=== PATIENT | male | born 1980 | race Asian ===

== ENCOUNTER 2016-06-27 04:56 | Emergency (ER) | payer OTHER ==
[2016-06-27 06:02] VITALS: BP 132/83; PULSE 102; TEMP 97.2; BMI 31.8
--- NOTE | 2016-06-27 06:16 | PDOC ---
History of Present Illness - General History Source: Patient Exam Limitations: No Limitations - History of Present Illness Initial Comments: 06/27/16 06:25 The patient is a 36-year-old male with a significant past medical history of bipolar disorder, and presents to the emergency department with a nonproductive cough for one day. The patient reports that he wakes up from his sleep coughing. He states he is having his tonsils removed in 2 weeks. He denies any history of asthma. The patient denies chest pain, shortness of breath, headache and dizziness. The patient denies fever, chills, nausea, vomit, diarrhea and constipation. The patient denies dysuria, frequency, urgency and hematuria. Allergies: NKDA Past Surgical History: None reported Social History: Denies any toxic habits PCP: Dr. Vernon Orona <Regina Saez - Last Filed: 06/27/16 06:25> <Alicia Soto - Last Filed: 06/27/16 22:31> - General Chief Complaint: Cold Symptoms Stated Complaint: COUGH, RESPIRATORY Time Seen by Provider: 06/27/16 06:16 Past History <Regina Saez - Last Filed: 06/27/16 06:25> - Past Medical History Psychiatric Problems: Yes (BIPOLAR 1) - Immunization History Immunization Up to Date: No - Psycho/Social/Smoking Cessation Hx Anxiety: No Suicidal Ideation: No Smoking Status: No Smoking History: Never smoked Number of Cigarettes Smoked Daily: 0 Hx Alcohol Use: No Drug/Substance Use Hx: No <Alicia Soto - Last Filed: 06/27/16 22:31> - Past Medical History Allergies/Adverse Reactions: Allergies Allergy/AdvReac Type Severity Reaction Status Date / Time No Known Allergies Allergy Verified 02/25/15 12:22 Home Medications: Ambulatory Orders Aripiprazole [Abilify -] 15 mg PO DAILY 06/27/16 Azithromycin [Zithromax Tri-Cy (3 DAYS) -] 500 mg PO DAILY #3 tablet 06/27/16 Divalproex Sodium [Depakote] 250 mg PO DAILY 06/27/16 Pseudoephedrine HCl [Sudafed] 1 tab PO QID #20 tablet 06/27/16 Quetiapine Fumarate [Seroquel -] 50 mg PO HS 06/27/16 Review of Systems - Review of Systems Able to Perform ROS?: Yes Comments:: 06/27/16 06:25 CONSTITUTIONAL: Absent: fever, chills, diaphoresis, generalized weakness, malaise, loss of appetite HEENT: Absent: rhinorrhea, nasal congestion, throat pain, throat swelling, difficulty swallowing, mouth swelling, ear pain, eye pain, visual changes CARDIOVASCULAR: Absent: chest pain, syncope, palpitations, irregular heart rate, lightheadedness , peripheral edema RESPIRATORY: Present: (+) cough Absent: shortness of breath, dyspnea with exertion, orthopnea, wheezing, stridor , hemoptysis GASTROINTESTINAL: Absent: abdominal pain, abdominal distension, nausea, vomiting, diarrhea, constipation, melena, hematochezia GENITOURINARY: Absent: dysuria, frequency, urgency, hesitancy, hematuria, flank pain, genital pain MUSCULOSKELETAL: Absent: myalgia, arthralgia, joint swelling SKIN: Absent: rash, itching, pallor HEMATOLOGIC/IMMUNOLOGIC: Absent: easy bleeding, easy bruising, lymphadenopathy, frequent infections ENDOCRINE: Absent: unexplained weight gain, unexplained weight loss, heat intolerance, cold intolerance NEUROLOGIC: Absent: headache, focal weakness or paresthesias, dizziness, unsteady gait, seizure, mental status changes, bladder or bowel incontinence PSYCHIATRIC: Absent: anxiety, depression, suicidal or homicidal ideation, hallucinations. <Regina Saez - Last Filed: 06/27/16 06:25> *Physical Exam - Vital Signs Last Vital Signs Temp Pulse Resp BP Pulse Ox 97.2 F L 102 H 19 132/83 97 06/27/16 05:58 06/27/16 05:58 06/27/16 05:58 06/27/16 05:58 06/27/16 05:58 - Physical Exam Comments: 06/27/16 06:26 GENERAL: Well developed, well nourished. Awake and alert. No acute distress. HEENT: Normocephalic, atraumatic. PERRLA, EOMI. No conjunctival pallor. Sclera are non- icteric. Moist mucous membranes. Oropharynx is clear. NECK: Supple. Full ROM. No JVD. Carotid pulses 2+ and symmetric, without bruits. No thyromegaly. No lymphadenopathy. CARDIOVASCULAR: Regular rate and rhythm. No murmurs, rubs, or gallops. Distal pulses are 2+ and symmetric. PULMONARY: No evidence of respiratory distress. Lungs clear to auscultation bilaterally. No wheezing, rales or rhonchi. ABDOMINAL: Soft. Non-tender. Non-distended. No rebound or guarding. No organomegaly. Normoactive bowel sounds. MUSCULOSKELETAL Normal range of motion at all joints. No bony deformities or tenderness. No CVA tenderness. EXTREMITIES: No cyanosis. No clubbing. No edema. No calf tenderness. SKIN: Warm and dry. Normal capillary refill. No rashes. No jaundice. NEUROLOGICAL: Alert, awake, appropriate. Cranial nerves 2-12 intact. No deficits to light touch and temperature in face, upper extremities and lower extremities. No motor deficits in the in face, upper extremities and lower extremities. Normoreflexic in the upper and lower extremities. Normal speech. Toes are down- going bilaterally. Gait is normal without ataxia. PSYCHIATRIC: Cooperative. Good eye contact. Appropriate mood and affect. <Regina Saez - Last Filed: 06/27/16 06:25> - Vital Signs Last Vital Signs Temp Pulse Resp BP Pulse Ox 97.2 F L 102 H 19 132/83 97 06/27/16 05:58 06/27/16 05:58 06/27/16 05:58 06/27/16 05:58 06/27/16 05:58 <Alicia Soto - Last Filed: 06/27/16 22:31> Medical Decision Making - Medical Decision Making 06/27/16 22:29 Pt comes with a dry cough; ongoing for over a week and now with worsening. He is afebirile. His sinuses are clogged and he likely has a post nasal drip. Patient has a normal exam. I will treat him for sinusitis/atypical pneumonia at this time with a z-cy. He can follow with his PMD/ENT doctors to follow up. Return for increased cough and difficulty breathing. <Alicia Soto - Last Filed: 06/27/16 22:31> *DC/Admit/Observation/Transfer - Attestations Scribe Attestion: 06/27/16 06:27 Documentation prepared by Regina Saez, acting as nuclear medical tech for Alicia Soto MD. <Regina Saez - Last Filed: 06/27/16 06:25> - Discharge Dispostion Admit: No <Alicia Soto - Last Filed: 06/27/16 22:31> Diagnosis at time of Disposition: Sinusitis, Post-nasal catarrh, Atypical pneumonia - Discharge Dispostion Disposition: HOME Condition at time of disposition: Stable - Prescriptions Prescriptions: Pseudoephedrine HCl [Sudafed] 1 tab PO QID #20 tablet Azithromycin [Zithromax Tri-Cy (3 DAYS) -] 500 mg PO DAILY #3 tablet - Referrals Referrals: Vernon Orona [Primary Care Provider] - - Patient Instructions Printed Discharge Instructions: DI for Sinusitis
== END 2016-06-27 06:27 | disposition home or self-care (01) ==
LOC: JER 04:56
DX: J32.9 Chronic sinusitis, unspecified (principal); R09.82 Postnasal drip; J18.9 Pneumonia, unspecified organism
CPT/HCPCS: 99282-25

== ENCOUNTER 2016-07-09 11:10 | Day surgery (SDC) | payer OTHER ==
[2016-07-08 14:36] VITALS: BMI 31.8
[2016-07-09] MEDS ORDERED: PROPOFOL 20 ML ONE ×3 (12:56)
[2016-07-09] MEDS ORDERED: MIDAZOLAM HCL 2 MG/2 ML SINGLE DOSE VIAL ONE (12:57)
[2016-07-09] MEDS ORDERED: ROCURONIUM BROMIDE 50 MG/5 ML VIAL ONE (12:57)
[2016-07-09] MEDS ORDERED: COCAINE HCL 4% TOPICAL SOLUTION 4 ML BOTTLE TP ONE (12:58)
[2016-07-09] MEDS ORDERED: DESFLURANE GAS 240 ML BOTTLE IH ONE (13:42)
[2016-07-09] MEDS ORDERED: LIDOCAINE 1%/EPI 1:100000 (50 ML MULTI DOSE VIAL) INF ONE (13:45)
[2016-07-09] MEDS ORDERED: oxyCODONE HCL 5 MG TABLET PO PRN (14:22)
[2016-07-09] MEDS ORDERED: ONDANSETRON 4 MG/2 ML VIAL IVPUSH PRN (14:22)
[2016-07-09] MEDS ORDERED: LACTATED RINGERS SOLUTION 1,000 ML IV SCH (14:30)
--- NOTE | 2016-07-09 15:31 | OP ---
DATE OF OPERATION: 07/09/2016 PREOPERATIVE DIAGNOSIS: Moderate obstructive sleep apnea, tonsillar hypertrophy , deviated septum, turbinate hypertrophy. POSTOPERATIVE DIAGNOSIS: Moderate obstructive sleep apnea, tonsillar hypertrophy, deviated septum, turbinate hypertrophy. PROCEDURE: Tonsillectomy, septoplasty, submucous resection bilateral inferior turbinates. INDICATION: The patient is a 36-year-old male who has had a history of chronic, severe snoring with gasping and arousals as well as significant daytime fatigue. He also has chronic nasal congestion with breathing with no relief despite prolonged medical therapy. He had a sleep study, which did show moderate obstructive sleep apnea and was adamant that he would not tolerate CPAP at all. On serial exam was noted to have 4+ cryptic tonsils as well as marked deviated septum bilaterally and turbinate hypertrophy and is now indicated for formal surgery. The patient understood risks, benefits, and alternatives and did wish to proceed. ANESTHESIA: General endotracheal intubation. DESCRIPTION OF PROCEDURE: The patient was brought to the operating room and placed in supine position. After successful induction of anesthesia and placement of endotracheal tube, a shoulder roll was placed, and the patient's face and neck was prepped and draped in usual sterile fashion. McIvor mouth gag was placed into the oral cavity and retracted open to expose the oropharynx, which was suspended from the Vides stand. Tonsils were noted to be 4+ bilaterally and markedly cryptic. Tonsillar fossa was injected with 6 mL of 1% lidocaine with 1:100,000 epinephrine. A subcapsular plane using the Coblation device with EVac Xtra handpiece was used to perform subcapital removal of bilateral tonsils preserving anterior and posterior tonsillar pillar mucosa. Bleeding was controlled using bipolar coblation device. No active bleeding was noted. Mouth gag was removed with no evidence of injury to dentition or mucosa. Attention was then brought to the nasal cavity. Pledgets soaked in 4% cocaine were placed into bilateral nasal cavities to establish vasoconstriction, and an additional 8 mL of 1% lidocaine with 1:100,000 epinephrine was injected into the bilateral septal mucosa as well as the inferior turbinate mucosa. The septum was addressed first. Standard right-sided hemitransfixion incision was made and a mucoperichondrial flap then elevated on the right side. A vertically oriented septal cartilage incision was made, leaving a 2-cm anterior and superior strut and then mucoperichondrial flap then elevated on the opposite side. The area of deflected cartilage was removed using a swivel knife as well as Jonathan forceps and Christ-Etienne forceps with no [id number] septal perforators noted. Septal mucosa was matched to itself using 3-0 chromic sutures. Attention was then brought to the inferior turbinates. A stab incision was made anteriorly. Submucosal tunnel created. The microdebrider with the inferior turbinate handpiece was used to perform submucosal removal of tissue anteriorly and superiorly down to the turbinate periosteum. The inferior turbinates were then outfractured. NasaPore sterile packing was placed in the nasal cavities for hemostasis. The patient told the procedure well and was extubated and brought to the recovery room in stable condition. ESTIMATED BLOOD LOSS: 20 mL. SPECIMENS: Bilateral tonsils. GURMEET VILLASENOR M.D. [id number] MTDD
[2016-07-09 18:14] VITALS: BP 130/80; PULSE 88
[2016-07-09 19:10] VITALS: TEMP 97.6
--- NOTE | 2016-07-13 14:01 | PATH ---
Surgical Pathology Report Patient Name: LY BARNHART Med. Rec. #: [id number] /Age/Gender: 1980 (Age: 36) / M Account: [id number] Location: [facility] SUR[facility] Taken: 07/09/2016 Received: 07/12/2016 Reported: 07/13/2016 Physicians: Kofi Claros M.D. Specimen(s) Received A: LEFT TONSIL B: RIGHT TONSIL C: NASAL SEPTUM Clinical History Tonsil hypertrophy bilateral, deviated septum, sleep apnea Final Diagnosis A. TONSIL, LEFT, TONSILLECTOMY: BENIGN TONSIL WITH REACTIVE FOLLICULAR LYMPHOID HYPERPLASIA AND COLONIZATION WITH MICROORGANISMS MORPHOLOGICALLY CONSISTENT WITH ACTINOMYCES SPECIES. B. TONSIL, RIGHT, TONSILLECTOMY: BENIGN TONSILS WITH REACTIVE FOLLICULAR LYMPHOID HYPERPLASIA AND COLONIZATION WITH MICROORGANISMS MORPHOLOGICALLY CONSISTENT WITH ACTINOMYCES SPECIES. C. NASAL SEPTUM, SEPTOPLASTY: BONE AND CARTILAGE WITHOUT SIGNIFICANT PATHOLOGIC CHANGES. Electronically Signed Shola Winn M.D. Gross Description A. Received in formalin labeled "left tonsil" is a 2.8 x 2.0 x 1.8 cm ovoid portion of soft tissue, consistent with a tonsil. The outer surface is kay-conrad, convoluted and varies from smooth to cauterized. Sectioning reveals homogeneous kay, smooth parenchyma with cryptic architecture. No discrete masses are identified. A risk control field representative section is submitted in one cassette. B. Received in formalin labeled "right tonsil" is a 2.5 x 2.0 x 1.8 cm ovoid portion of soft tissue, consistent with a tonsil. The outer surface is kay-conrad, convoluted and varies from smooth to cauterized. Sectioning reveals homogeneous kay, smooth parenchyma with cryptic architecture. No discrete masses are identified. A risk control field representative section is submitted in one cassette. C. Received in formalin labeled "nasal septum" is a 4.5 x 3.3 x 0.3 cm aggregate of kay, irregular portions of cartilage and bone. Director Of Mechanical Engineering sections are submitted in one cassette, following decalcification. 07/12/201607/12/2016
== END 2016-07-09 18:10 | disposition home or self-care (01) ==
LOC: JASU-SURG 11:10
PROVIDERS: ATTEND Otolaryngology
PROC: 0CTPXZZ Resection of Tonsils, External Approach (ICD-10-PCS; principal; 2016-07-09 13:00)
PROC: 09SM0ZZ Reposition Nasal Septum, Open Approach (ICD-10-PCS; 2016-07-09 13:00)
DX: J35.1 Hypertrophy of tonsils (principal); G47.33 Obstructive sleep apnea (adult) (pediatric); J34.3 Hypertrophy of nasal turbinates; J34.2 Deviated nasal septum
CPT/HCPCS: 88302-TC; 88304-TC; 88311-TC; 94760

== ENCOUNTER 2019-11-26 05:49 | Day surgery (SDC) | payer BC ==
[2019-11-22 16:12] VITALS: BMI 33.5
[~2019-11-26 05:49] MED LIST: BUPIVACAINE HCL/PF 0.25% (2.5MG/ML) 10 ML VIAL IJ ONE
--- OUTSIDE RECORDS SUMMARY | 2019-11-26 05:53 | XMS ---
:1980 Author Organization [facility] Care Team Providers Name Role Phone JEANETTE WILSON MD Unavailable Unavailable [id number] Unavailable Unavailable [facility] Unavailable Unavailable ZENER Unavailable Unavailable Re-disclosure Warning The records that you are about to access may contain information from federally- assisted alcohol or drug abuse programs. If such information is present, then the following federally mandated warning applies: This information has been disclosed to you from records protected by federal confidentiality rules (42 CFR part 2). The federal rules prohibit you from making any further disclosure of this information unless further disclosure is expressly permitted by the written consent of the person to whom it pertains or as otherwise permitted by 42 CFR part 2. A general authorization for the release of medical or other information is NOT sufficient for this purpose. The Federal rules restrict any use of the information to criminally investigate or prosecute any alcohol or drug abuse patient.The records that you are about to access may contain highly sensitive health information, the redisclosure of which is protected by Article 27-F of the [facility] Public Health law. If you continue you may haveaccess to information: Regarding HIV / AIDS; Provided by facilities licensed or operated by the [facility] Office of Mental Health; or Provided by the [facility] Office for People With Developmental Disabilities. If such information is present, then the following [facility] mandated warning applies: This information has been disclosed to you from confidential records which are protected by state law. State law prohibits you from making any further disclosure of this information without the specific written consent of the person to whom it pertains, or as otherwise permitted by law. Any unauthorized further disclosure in violation of state law may result in a fine or residential sentence or both. A general authorization for the release of medical or other information is NOT sufficient authorization for further disclosure. Encounters Encounter Providers Location Date Indications Data Source(s ) Outpatient Attender: [id number] 04/17/2019 I ([facility] 01:11:40 PM Care Bernice n) EST Patient admitted. Outpatient Attender: JEANETTE ROBERTS 04/29/2016 08:55[facility]00 [facility] NABIL PAVON AM EST Hospital Attender: 04/29/2016 08:55:00 [facility] [id number] AM EST Hospital .1 [id number] Attender: 03/30/2016 01:20:00 [facility] [id number] PM EST Hospital .1 [id number] Attender: 03/30/2016 11:01:00 [facility] [id number] AM EST Hospital .1 [id number] Attender: 2016 03:04:00 [facility] [id number] PM EST Hospital .1 [id number] Attender: 2016 12:45:00 [facility] [id number] PM EST Hospital .1 [id number] Attender: 12/10/2015 08:53:00 [facility] [id number] AM EDT Hospital .1 [id number] Attender: 11/28/2015 12:59:00 [facility] [id number] PM EDT Hospital .1 [id number] Attender: 09/01/2010 05:16:00 [facility] [id number] PM EDT Hospital .1 [id number] Attender: 07/24/2010 10:31:00 [facility] [id number] AM EDT Hospital .1 [id number] Attender: 07/23/2010 03:56:00 [facility] [id number] PM EDT Hospital .1 [id number] Attender: 06/22/2010 01:20:00 [facility] [id number] PM EDT Hospital .1 [id number] Attender: 06/08/2010 02:22:00 [facility] [id number] PM EDT Hospital .1 [id number] Medications Medication Brand Start Product Dose Route Administrative Pharmacy [facility] Indications Reaction Description Data Name Date Form Instructions Instructions Source(s) olanzapine ZyPREX ORAL complet ZyPREXA - 20 [facility] 20 [facility] Oral A - 20 2019 [facility] ORAL [place] [facility] [Zyprexa[facility] ORAL 00 AM Tablet EDT olanzapine ZyPREX ORAL complet ZyPREXA - 20 [facility] 20 MG Oral A - 20 2019 [facility] ORAL [place] [facility] [Zyprexa] ORAL 00 AM Tablet EDT olanzapine ZyPREX ORAL complet ZyPREXA - 20 [facility] 20 MG Oral A - 20 2019 [facility] ORAL [place] [facility] [Zyprexa] ORAL 00 AM Tablet EST olanzapine ZyPREX ORAL complet ZyPREXA - 20 [facility] 20 MG Oral A - 20 2018 [facility] ORAL [place] [facility] [Zyprexa] ORAL 00 AM Tablet EST olanzapine ZyPREX ORAL complet ZyPREXA - 5 [facility] 5 MG Oral A - 5 2018 Table ed MG ORAL [place] n[place] Tablet MG 12:[facility]: [facility] [Zyprexa] ORAL 00 AM Tablet EDT olanzapine ZyPREX ORAL complet ZyPREXA - 15 [facility] 15 MG Oral A - 15 2018 Table ed MG ORAL [place] [facility] [Zyprexa] ORAL 00 AM Tablet EDT olanzapine ZyPREX ORAL complet ZyPREXA - 15 [facility] 15 MG Oral A - 15 2018 Table ed MG ORAL [place] [facility] 12:[facility]: [facility] [Zyprexa] ORAL 00 AM Tablet EDT olanzapine ZyPREX ORAL complet ZyPREXA - 15 [facility] 15 MG Oral A - 2018 [facility] MG ORAL [place] [facility] 12:[facility]: [facility] [Zyprexa] ORAL 00 AM Tablet EDT olanzapine ZyPREX ORAL complet ZyPREXA - 15 [facility] 15 MG Oral A 2018 Table ed MG ORAL [place] [facility] 12:[facility]: [facility] [Zyprexa] ORAL 00 AM Tablet EDT olanzapine ZyPREX ORAL complet ZyPREXA - 10 [facility] 10 MG Oral A 2018 Table ed MG ORAL [place] [facility]t MG 12:[facility]: [facility] [Zyprexa] ORAL 00 AM Tablet EDT olanzapine ZyPREX ORAL complet ZyPREXA - 5 [facility] 5 MG Oral A 2018 Table ed MG ORAL [facility] n[facility] Tablet [facility] 12:[facility]: [facility] [Zyprexa] ORAL 00 AM Tablet EDT Lurasidone Latuda ORAL complet Latuda - 40 [facility] Hydrochlori 40 2018 Table ed MG [facility]AL [facility] MG MG 12:00: [facility] Oral Tablet ORAL 00 AM Tablet EDT Lurasidone Latuda ORAL complet Latuda - 60 [facility] Hydrochlori - 60 2018 Table ed MG ORAL [facility] 60 MG MG 12:00: t [facility] Oral Tablet ORAL 00 AM [Latuda] Tablet EDT olanzapine ZyPREX ORAL complet ZyPREXA - [facility] 2.5 MG Oral A 2018 [facility] ed 2.5 MG ORAL [facility] Tablet 2.5 MG 12:00: t [facility] [Zyprexa] ORAL 00 AM Tablet EST Lurasidone Latuda ORAL complet Latuda - 20 [facility] Hydrochlori - 20 2018 Table ed MG ORAL [facility] 20 MG MG 12:00: t [facility] Oral Tablet ORAL 00 AM Tablet EST Alprazolam Xanax ORAL complet Xanax - 0.25 [facility] 0.[facility] MG - 0.25 2018 Table ed MG ORAL [facility] Oral Tablet MG 12:00: t [facility] ital [Xanax] ORAL 00 AM Tablet EST aripiprazol Abilif ORAL complet Abilif y - 10 [facility] 10 MG y - 10 2018 Table ed MG ORAL [facility] Oral Tablet MG 12:00: t [facility] [Abilify] ORAL 00 AM Tablet EST Zolpidem Ambien ORAL complet Ambien - 10 [facility] tartrate 10 - 10 2017 Table ed MG ORAL [facility] MG Oral MG 12:00: t [facility] Tablet ORAL 00 AM [Ambien] Tablet EST Lurasidone Latuda ORAL complet Latuda - 80 [facility]2017 Table ed MG ORAL [facility] 80 MG MG 12:00: t [facility] Oral Tablet ORAL 00 AM Tablet EST Lurasidone Latuda ORAL complet Latuda - [facility] 2017 Table ed MG ORAL [facility] 20 MG MG 12:00: t [facility] Oral Tablet ORAL 00 AM [Latuda] Tablet EST Zolpidem Ambien ORAL complet Ambien - 5 [facility] tartrate 5 - 5 MG 2017 Table ed MG ORAL [place] [facility] MG Oral ORAL 12:00: t [facility] Hospital Tablet Tablet 00 AM [Ambien] EDT Lurasidone Latuda ORAL complet Latuda - 80 [facility] 2017 Table ed MG ORAL [facility] 80 MG MG 12:00: t [facility] Oral Tablet ORAL 00 AM [Latuda] Tablet EDT Lurasidone Latuda ORAL complet Latuda - 80 [place] [address] 2017 Table ed MG ORAL [facility] 80 MG MG 12:00: t [facility]osp[facility] Oral Tablet ORAL 00 AM [Latuda] Tablet EDT atomoxetine Stratt ORAL complet Stra 10 MG Oral era 2017 Capsu ed 10 MG ORAL [facility] Capsule 10 MG 12:00: le Capsule Hospit al [Strattera] ORAL 00 AM Capsul EDT e Lurasidone Latuda ORAL complet Latuda - 80 [facility] 80 2017 Table ed MG ORAL [facility] 80 MG MG 12:00: t [facility]osp[facility] l Oral Tablet ORAL 00 AM [Latuda] Tablet EDT Lurasidone Latuda ORAL complet Latuda - 60 [facility] 60 2017 Table ed MG ORAL [facility] 60 MG MG 12:00: t [facility]t [facility]osp[facility] l Oral Tablet ORAL 00 AM Tablet EDT Lurasidone Latuda ORAL complet Latuda - 60 [place] [address] 2017 Table ed MG ORAL [facility] 60 MG MG 12:00: t [facility]osp[facility] Oral Tablet ORAL 00 AM Tablet EDT Zolpidem Ambien ORAL complet Ambien - 5 [facility] tartrate 5 - 5 MG 2017 Table ed MG ORAL [place] [facility] MG Oral ORAL 12:00: t [facility]t Hospital Tablet Tablet 00 AM [Ambien] EST Diphenhydra diphen ORAL complet diphen [facility] 2017 Capsu ed INE HCl - 25 [facility] Hydrochlori INE 12:00: le MG ORAL Hos pital de 25 MG HCl - 00 AM Capsule Oral 25 MG EST Capsule ORAL Capsul e Lurasidone Latuda ORAL complet Latuda - 60 [place] [address] 2017 Table ed MG ORAL [facility] 60 MG MG 12:00: t [facility]ospita l Oral Tablet ORAL 00 AM [Latuda] Tablet EST Lurasidone Latuda ORAL complet Latuda - 40 [facility] 40 2017 Table ed MG ORAL [facility] 40 MG MG 12:00: t [facility]t Hospita l Oral Tablet ORAL 00 AM [Latuda] Tablet EST Lurasidone Latuda ORAL complet Latuda - 20 [facility] 2016 Table ed MG ORAL [facility] 20 MG MG 12:00: t [facility]osp[facility] Oral Tablet ORAL 00 AM [Latuda] Tablet EST Lurasidone Latuda ORAL complet [facility]uda - [facility] Table ed MG ORAL [facility] 20 MG MG 12:00: t [facility]osp[facility] Oral Tablet ORAL 00 AM [Latuda] Tablet EST aripiprazol Abilif ORAL complet Abilif y - 10 [facility] e 10 MG y - 10 2016 Table ed MG ORAL [facility] Oral Tablet MG 12:00: t Tablet Hosp ital [Abilify] ORAL 00 AM Tablet EST aripiprazol Abilif ORAL complet Abilif y - 10 [facility] 10 MG y - 2016 Table ed MG ORAL [facility] Oral Tablet MG 12:00: t [facility]osp ital [Abilify] ORAL 00 AM Tablet EDT topiramate Topama ORAL complet Topamax - 25 [facility] 25 MG Oral x - 25 2016 Table ed MG ORAL [place] cents Tablet MG 12:00: t [facility] [Topamax] ORAL 00 AM Tablet EDT aripiprazol Abilif 03/24/ ORAL complet S [facility] e 15 MG y - 2016 [facility] Oral Tablet MG 12:00: Hospit al [Abilify] ORAL 00 AM Tablet EST Insurance Providers Payer name Policy type Policy ID Covered Covered republican's Policy P marlen / Coverage republican ID relationship to [place] Inf ormation type benoit PPO [id number] SP [id number] MEDICAID OP [id number] Self [id number] [facility] EB [id number] Self [id number] CARE SELF PAY 0000 Self 0000 BEACON [id number] Self [id number] (EMPIRE PLAN V/O) Problems, Conditions, and Diagnoses Code Display Name Description Problem Type Effective Dates Data Source(s) 296.44 BIPOLAR I Bipolar disorder, Diagnosis 06/18/2010 [facility] DISORDER MOST manic, severe w 10:00:00 AM EDT H ospital RECENT EPISODE psychotic (OR CURRENT) MANIC SEVERE SPECIFIED WITH PSYCHOTIC BEHAVIOR Results ID Date Data Source [id number] 11/22/2019 09:17:00 AM EDT [facility] Name Value Range Interpretation Description Data Sup porting Code Source(s) Document(s ) SARS [facility] coronavirus 2 RNA This lab was ordered by KE avila LULU and reported by [facility]. Procedure Vital Signs ID Date Data Source UNK Name Value Range Interpretation Code Description Data Source(s) Body temperature 98 Fahrenheit 98 Fahrenheit [facility] Diastolic blood 89 mmHg 89 mmHg [facility] Systolic blood 126 mmHg 126 mmHg [facility] Respiratory rate 18 bpm 18 bpm [facility] Heart rate 78 bpm 78 bpm [facility] Diastolic blood 83 mmHg 83 mmHg [facility] Systolic blood 134 mmHg 134 mmHg [facility] Respiratory rate 18 bpm 18 bpm [facility] Heart rate 101 bpm 101 bpm [facility] Diastolic blood 79 mmHg 79 mmHg [facility] Systolic blood 132 mmHg 132 mmHg [facility] Respiratory rate 18 bpm 18 bpm [facility] Heart rate 93 bpm 93 bpm [facility] Body temperature 97.0 Fahrenheit 97.0 Fahrenhei t [facility] Diastolic blood 79 mmHg 79 mmHg [facility] Systolic blood 123 mmHg 123 mmHg [facility] Heart rate 114 bpm 114 bpm [facility] Diastolic blood 82 mmHg 82 mmHg [facility] Systolic blood 125 mmHg 125 mmHg [facility] Respiratory rate 18 bpm 18 bpm [facility] Heart rate 93 bpm 93 bpm [facility] Body temperature 97.1 Fahrenheit 97.1 Fahrenhei t [facility] Diastolic blood 78 mmHg 78 mmHg [facility] Systolic blood 120 mmHg 120 mmHg [facility] Heart rate 96 bpm 96 bpm [facility] Diastolic blood 76 mmHg 76 mmHg [facility] Systolic blood 124 mmHg 124 mmHg [facility] Respiratory rate 18 bpm 18 bpm [facility] Heart rate 96 bpm 96 bpm [facility] Body temperature 96.0 Fahrenheit 96.0 Fahrenhei t [facility] Diastolic blood 76 mmHg 76 mmHg [facility] Systolic blood 124 mmHg 124 mmHg [facility] Respiratory rate 18 bpm 18 bpm [facility] Heart rate 96 bpm 96 bpm [facility] Body temperature 96.0 Fahrenheit 96.0 Fahrenhei t [facility] Diastolic blood 86 mmHg 86 mmHg [facility] Systolic blood 141 mmHg 141 mmHg [facility] Heart rate 104 bpm 104 bpm [facility] Diastolic blood 82 mmHg 82 mmHg [facility] Systolic blood 132 mmHg 132 mmHg [facility] Respiratory rate 18 bpm 18 bpm [facility] Heart rate 92 bpm 92 bpm [facility] Body temperature 97.0 Fahrenheit 97.0 Fahrenhei t [facility] Diastolic blood 83 mmHg 83 mmHg [facility] Systolic blood 120 mmHg 120 mmHg [facility] Respiratory rate 20 bpm 20 bpm [facility] Heart rate 102 bpm 102 bpm [facility] Diastolic blood 77 mmHg 77 mmHg [facility] Systolic blood 127 mmHg 127 mmHg [facility] Respiratory rate 20 bpm 20 bpm [facility] Heart rate 94 bpm 94 bpm [facility] Body temperature 96.7 Fahrenheit 96.7 Fahrenhei t [facility] Diastolic blood 89 mmHg 89 mmHg [facility] Systolic blood 145 mmHg 145 mmHg [facility] Heart rate 99 bpm 99 bpm [facility] Diastolic blood 86 mmHg 86 mmHg [facility] Systolic blood 135 mmHg 135 mmHg [facility] Respiratory rate 18 bpm 18 bpm [facility] Heart rate 93 bpm 93 bpm [facility] Body temperature 95.8 Fahrenheit 95.8 Fahrenhei t [facility] Diastolic blood 79 mmHg 79 mmHg [facility] Systolic blood 131 mmHg 131 mmHg [facility] Respiratory rate 18 bpm 18 bpm [facility] Heart rate 91 bpm 91 bpm [facility] Body temperature 97.0 Fahrenheit 97.0 Fahrenhei t [facility] Diastolic blood 76 mmHg 76 mmHg [facility] Systolic blood 114 mmHg 114 mmHg [facility] Respiratory rate 18 bpm 18 bpm [facility] Heart rate 95 bpm 95 bpm [facility] Body temperature 97.0 Fahrenheit 97.0 Fahrenhei t [facility] Heart rate 103 bpm 103 bpm [facility] Diastolic blood 84 mmHg 84 mmHg [facility] Systolic blood 143 mmHg 143 mmHg [facility] Diastolic blood 94 mmHg 94 mmHg [facility] Systolic blood 138 mmHg 138 mmHg [facility] Respiratory rate 18 bpm 18 bpm [facility] Heart rate 100 bpm 100 bpm [facility] Body temperature 100 Fahrenheit 100 Fahrenheit [facility] Diastolic blood 79 mmHg 79 mmHg [facility] Systolic blood 126 mmHg 126 mmHg [facility] Respiratory rate 18 bpm 18 bpm [facility] Heart rate 95 bpm 95 bpm [facility] Body temperature 96.3 Fahrenheit 96.3 Fahrenhei t [facility] Diastolic blood 80 mmHg 80 mmHg [facility] Systolic blood 120 mmHg 120 mmHg [facility] Respiratory rate 18 bpm 18 bpm [facility] Heart rate 109 bpm 109 bpm [facility] Body temperature 96.3 Fahrenheit 96.3 Fahrenhei t [facility] Diastolic blood 91 mmHg 91 mmHg [facility] Systolic blood 138 mmHg 138 mmHg [facility] Respiratory rate 18 bpm 18 bpm [facility] Heart rate 99 bpm 99 bpm [facility] Diastolic blood 87 mmHg 87 mmHg [facility] Systolic blood 135 mmHg 135 mmHg [facility] Respiratory rate 18 bpm 18 bpm [facility] Heart rate 99 bpm 99 bpm [facility] Body temperature 98.9 Fahrenheit 98.9 Fahrenhei t [facility] Diastolic blood 87 mmHg 87 mmHg [facility] Systolic blood 129 mmHg 129 mmHg [facility] Respiratory rate 18 bpm 18 bpm [facility] Heart rate 104 bpm 104 bpm [facility] Diastolic blood 89 mmHg 89 mmHg [facility] Systolic blood 127 mmHg 127 mmHg [facility] Respiratory rate 18 bpm 18 bpm [facility] Heart rate 98 bpm 98 bpm [facility] Body temperature 97.5 Fahrenheit 97.5 Fahrenhei t [facility] Diastolic blood 80 mmHg 80 mmHg [facility] Systolic blood 129 mmHg 129 mmHg [facility] Respiratory rate 18 bpm 18 bpm [facility] Heart rate 103 bpm 103 bpm [facility] Diastolic blood 81 mmHg 81 mmHg [facility] Systolic blood 127 mmHg 127 mmHg [facility] Respiratory rate 18 bpm 18 bpm [facility] Heart rate 100 bpm 100 bpm [facility] Body temperature 97.0 Fahrenheit 97.0 Fahrenhei t [facility] Body temperature 96.8 Fahrenheit 96.8 Fahrenhei t [facility] Diastolic blood 88 mmHg 88 mmHg [facility] Systolic blood 127 mmHg 127 mmHg [facility] Respiratory rate 18 bpm 18 bpm [facility] Heart rate 98 bpm 98 bpm [facility] Diastolic blood 81 mmHg 81 mmHg [facility] Systolic blood 124 mmHg 124 mmHg [facility] Respiratory rate 18 bpm 18 bpm [facility] Heart rate 110 bpm 110 bpm [facility] Diastolic blood 75 mmHg 75 mmHg [facility] Systolic blood 106 mmHg 106 mmHg [facility] Respiratory rate 18 bpm 18 bpm [facility] Heart rate 98 bpm 98 bpm [facility] Body temperature 96.5 Fahrenheit 96.5 Fahrenhei t [facility] Diastolic blood 79 mmHg 79 mmHg [facility] Systolic blood 121 mmHg 121 mmHg [facility] Respiratory rate 18 bpm 18 bpm [facility] Heart rate 124 bpm 124 bpm [facility] Diastolic blood 88 mmHg 88 mmHg [facility] Systolic blood 125 mmHg 125 mmHg [facility] Respiratory rate 18 bpm 18 bpm [facility] Heart rate 114 bpm 114 bpm [facility] Body temperature 96.4 Fahrenheit 96.4 Fahrenhei t [facility] Body weight 233 lbs 233 lbs [facility] Body temperature 96.8 Fahrenheit 96.8 Fahrenhei t [facility] Diastolic blood 91 mmHg 91 mmHg [facility] Systolic blood 142 mmHg 142 mmHg [facility] Respiratory rate 20 bpm 20 bpm [facility] Heart rate 88 bpm 88 bpm [facility] Diastolic blood 90 mmHg 90 mmHg [facility] Systolic blood 126 mmHg 126 mmHg [facility] Respiratory rate 18 bpm 18 bpm [facility] Heart rate 97 bpm 97 bpm [facility] Body temperature 96.8 Fahrenheit 96.8 Fahrenhei t [facility] Body temperature 96.1 Fahrenheit 96.1 Fahrenhei t [facility] Diastolic blood 87 mmHg 87 mmHg [facility] Systolic blood 130 mmHg 130 mmHg [facility] Respiratory rate 18 bpm 18 bpm [facility] Heart rate 105 bpm 105 bpm [facility] Diastolic blood 84 mmHg 84 mmHg [facility] Systolic blood 135 mmHg 135 mmHg [facility] Heart rate 109 bpm 109 bpm [facility] Diastolic blood 89 mmHg 89 mmHg [facility] Systolic blood 129 mmHg 129 mmHg [facility] Respiratory rate 18 bpm 18 bpm [facility] Heart rate 105 bpm 105 bpm [facility] Body temperature 95.5 Fahrenheit 95.5 Fahrenhei t [facility] Diastolic blood 97 mmHg 97 mmHg [facility] Systolic blood 140 mmHg 140 mmHg [facility] Respiratory rate 18 bpm 18 bpm [facility] Heart rate 104 bpm 104 bpm [facility] Body temperature 96.6 Fahrenheit 96.6 Fahrenhei t [facility] Diastolic blood 92 mmHg 92 mmHg [facility] Systolic blood 138 mmHg 138 mmHg [facility] Heart rate 128 bpm 128 bpm [facility] Diastolic blood 90 mmHg 90 mmHg [facility] Systolic blood 133 mmHg 133 mmHg [facility] Respiratory rate 18 bpm 18 bpm [facility] Heart rate 115 bpm 115 bpm [facility] Body temperature 97.2 Fahrenheit 97.2 Fahrenhei t [facility] Diastolic blood 83 mmHg 83 mmHg [facility] Systolic blood 127 mmHg 127 mmHg [facility] Respiratory rate 18 bpm 18 bpm [facility] Heart rate 100 bpm 100 bpm [facility] Body temperature 96.7 Fahrenheit 96.7 Fahrenhei t [facility] Diastolic blood 85 mmHg 85 mmHg [facility] Systolic blood 131 mmHg 131 mmHg [facility] Respiratory rate 18 bpm 18 bpm [facility] Heart rate 104 bpm 104 bpm [facility] Body temperature 97.4 Fahrenheit 97.4 Fahrenhei t [facility] Diastolic blood 93 mmHg 93 mmHg [facility] Systolic blood 140 mmHg 140 mmHg [facility] Respiratory rate 18 bpm 18 bpm [facility] Heart rate 88 bpm 88 bpm [facility] Body temperature 96.1 Fahrenheit 96.1 Fahrenhei t [facility] Diastolic blood 93 mmHg 93 mmHg [facility] Systolic blood 133 mmHg 133 mmHg [facility] Respiratory rate 18 bpm 18 bpm [facility] Heart rate 103 bpm 103 bpm [facility] Body temperature 96.1 Fahrenheit 96.1 Fahrenhei t [facility] Diastolic blood 83 mmHg 83 mmHg [facility] Systolic blood 123 mmHg 123 mmHg [facility] Heart rate 123 bpm 123 bpm [facility] Diastolic blood 83 mmHg 83 mmHg [facility] Systolic blood 129 mmHg 129 mmHg [facility] Respiratory rate 18 bpm 18 bpm [facility] Heart rate 110 bpm 110 bpm [facility] Body temperature 97.0 Fahrenheit 97.0 Fahrenhei t [facility] [facility] Diastolic blood 83 mmHg 83 mmHg [facility] Systolic blood 129 mmHg 129 mmHg [facility] Respiratory rate 18 bpm 18 bpm [facility] Heart rate 110 bpm 110 bpm [facility] Body temperature 97.0 Fahrenheit 97.0 Fahrenhei t [facility] Respiratory rate 18 bpm 18 bpm [facility] Body temperature 96.7 Fahrenheit 96.7 Fahrenhei t [facility] Diastolic blood 86 mmHg 86 mmHg [facility] Systolic blood 125 mmHg 125 mmHg [facility] Heart rate 115 bpm 115 bpm [facility] ID Date Data Source [id number] 10/24/2019 01:04:54 PM EDT [facility] Name Value Range Interpretation Code Description Data Source(s) Body weight Measured 233 lb 233 lb [facility]
[2019-11-26] MEDS ORDERED: BUPIVACAINE HCL/PF 0.25% (2.5MG/ML) 10 ML VIAL ONE (07:29)
[2019-11-26] MEDS ORDERED: MIDAZOLAM HCL 2 MG/2 ML SINGLE DOSE VIAL ONE (07:53)
[2019-11-26] MEDS ORDERED: SUCCINYLCHOLINE CHLORIDE 200 MG/10 ML SYRINGE ONE (07:54)
[2019-11-26] MEDS ORDERED: PROPOFOL 20 ML ONE ×3 (07:54)
[2019-11-26] MEDS ORDERED: ROCURONIUM BROMIDE 50 MG/5 ML SYRINGE ONE (07:54)
--- NOTE | 2019-11-26 07:58 | HP ---
Admitting History and Physical - Admission Chief Complaint: Morbid obesity History Source: Patient Limitations to Obtaining History: No Limitations - Past Medical History Pulmonary: Yes: Sleep Apnea Psych: Yes: Bipolar - Past Surgical History Past Surgical History: Yes: Tonsillectomy - Smoking History Smoking history: Never smoked Aproximately how many cigarettes per day: 0 - Alcohol/Substance Use Hx Alcohol Use: Yes (RARELY) - Social History ADL: Independent Home Medications - Allergies Allergies/Adverse Reactions: Allergies Allergy/AdvReac Type Severity Reaction Status Date / Time No Known Allergies Allergy Verified 07/09/16 11:54 - Home Medications Home Medications: Ambulatory Orders Finasteride 1 mg PO DAILY 11/22/19 Olanzapine [Zyprexa] 20 mg PO DAILY 11/22/19 Family Medical History Family History: Unremarkable Review of Systems - Review of Systems Constitutional: denies: Chills, Fever Neck: reports: No Symptoms Cardiovascular: reports: No Symptoms Respiratory: reports: No Symptoms Gastrointestinal: reports: No Symptoms Neurological: reports: No Symptoms Pain Intensity: 0 Physical Examination Vital Signs: Vital Signs Temperature 98.7 F 11/26/19 06:32 Pulse Rate 78 11/26/19 06:32 Respiratory Rate 17 11/26/19 06:32 Blood Pressure 133/98 11/26/19 06:32 O2 Sat by Pulse Oximetry (%) 98 11/26/19 06:32 Constitutional: Yes: Calm Neck: Yes: WNL Cardiovascular: Yes: WNL Respiratory: Yes: Regular Gastrointestinal: Yes: Soft, Abdomen, Obese Neurological: Yes: Alert, Oriented Problem List - Problems (1) Morbid obesity due to excess calories Code(s): E66.01 - MORBID (SEVERE) OBESITY DUE TO EXCESS CALORIES Assessment/Plan Laparoscopic possible open gastric band placement possible liver biopsy, upper endoscopy
[2019-11-26] MEDS ORDERED: LIDOCAINE HCL/PF 2% SDV 5ML VIAL ONE (08:51)
[2019-11-26] MEDS ORDERED: GLYCOPYRROLATE 0.2 MG/1 ML VIAL ONE (08:51)
[2019-11-26] MEDS ORDERED: ONDANSETRON 4 MG/2 ML VIAL ONE (08:51)
[2019-11-26] MEDS ORDERED: NEOSTIGMINE METHYLSULFATE 0.5 MG/ML - 10 ML MDV ONE (08:51)
[2019-11-26] MEDS ORDERED: DEXAMETHASONE SOD PHOSPHATE 4 MG/1 ML VIAL ONE (08:51)
[2019-11-26] MEDS ORDERED: ceFAZolin SODIUM 1 GM VIAL ONE (08:51)
[2019-11-26] MEDS ORDERED: BUPIVACAINE HCL/PF 0.25% (2.5MG/ML) 10 ML VIAL IJ ONE (09:15)
[2019-11-26] MEDS ORDERED: ONDANSETRON 4 MG/2 ML VIAL IVPUSH PRN (09:19)
--- NOTE | 2019-11-26 09:21 | OPR ---
Operative Note Operative Date: 11/26/19 Pre-Operative Diagnosis: Morbid obesity Operation: 1. Diagnostic laparoscopy. 2. Laparoscopic gastric band placement AP Standard 3. Laparoscopic wedge liver biopsy. 4. Laparoscopic oversewing of stomach 5. Laparoscopic lysis of adhesions Post-Operative Diagnosis: Same as Pre-op (as well as hepatomegaly) Surgeon: Calvin Altamirano Assembler Tester: Jin Bergeron Anesthesia: General Specimens Removed: Liver biopsy. Estimated Blood Loss (mls): 30 Drains & Tubes with Location: OG tube Operative Report Dictated: Yes
[2019-11-26] MEDS ORDERED: ACETAMINOPHEN INJECTION 100 ML IVPB ONE (09:23)
[2019-11-26] MEDS ORDERED: METOCLOPRAMIDE HCL INJECTION 10 MG/2 ML VIAL ONE (09:23)
[2019-11-26] MEDS ORDERED: SODIUM CHLORIDE 1,000 ML IV SCH (09:30)
[2019-11-26] MEDS ORDERED: oxyCODONE HCL 5 MG TABLET PO PRN (09:37)
[2019-11-26] MEDS ORDERED: METOCLOPRAMIDE HCL INJECTION 10 MG/2 ML VIAL IVPUSH SCH (09:45)
[2019-11-26] MEDS ORDERED: ONDANSETRON 4 MG/2 ML VIAL IVPUSH SCH (09:45)
[2019-11-26] MEDS ORDERED: LACTATED RINGERS SOLUTION 1,000 ML IV SCH (09:45)
[2019-11-26] MEDS ORDERED: ACETAMINOPHEN 1000 MG/100 ML VIAL (NON FORMULARY) IVPB SCH (10:00)
[2019-11-26] MEDS ORDERED: PATIENT'S OWN MEDICATION (NON-FORMULARY) (Finasteride [Finasteride] 1 MG) PO SCH (10:00)
[2019-11-26] MEDS ORDERED: OLANZapine 10 MG TABLET PO SCH (10:00)
[2019-11-26] MEDS ORDERED: FAMOTIDINE 20 MG/50 ML IVPB 20 MG/50 ML MG IVPB SCH (10:00)
[2019-11-26 11:12] LABS: HEMATOCRIT 46.1 % (35.4-49); HEMOGLOBIN 15.3 GM/dl (11.7-16.9); MCHC 33.2 g/dl (32.0-35.9); MEAN CELL VOLUME 78.5 fl (80-96); PLATELET COUNT 213 K/MM3 (134-434); RBC 5.87 M/mm3 (4.00-5.60); RDW 12.1 % (11.9-15.9); WHITE BLOOD COUNT 5.9 K/mm3 (4.0-10.8)
[2019-11-26 11:23] VITALS: PULSE 80; TEMP 98
[2019-11-26 11:31] LABS: CALCIUM 8.2 mg/dl (8.5-10); CREATININE 0.9 mg/dl (0.55-1.3); POTASSIUM 5.1 mmol/L (3.5-5.1)
[2019-11-26] MEDS ORDERED: ENOXAPARIN NA (PORCINE) 40 MG/0.4 ML DISP.SYRIN SQ ONE ×2 (12:32→13:10)
--- NOTE | 2019-11-26 12:36 | PN ---
Progress Note (short form) - Note Progress Note: UGI: no leak/obstruction Clears Discharge home Problem List - Problems (1) Morbid obesity due to excess calories Code(s): E66.01 - MORBID (SEVERE) OBESITY DUE TO EXCESS CALORIES
[2019-11-26] MEDS: oxyCODONE HCL 5 MG TABLET ONE ×2 (12:40→13:25)
[2019-11-26 13:18] VITALS: BP 135/84
--- NOTE | 2019-11-26 14:56 | SPEC ---
PLACE OF SERVICE: [facility] DATE OF OPERATION: 11/26/2019 SURGEON: Calvin Altamirano MD PSYCHOLOGIST: Jin Bergeron MD PREOPERATIVE DIAGNOSES: 1. Morbid obesity. 2. Sleep apnea. POSTOPERATIVE DIAGNOSES: 1. Morbid obesity. 2. Sleep apnea. 3. Intraabdominal adhesions. 4. Hepatomegaly. PROCEDURE: 1. Diagnostic laparoscopy. 2. Laparoscopic gastric band placement, standard AP band. 3. Laparoscopic wedge liver biopsy. 4. Laparoscopic lysis of adhesions. 5. Laparoscopic oversewing of the stomach. SPECIMEN: Liver biopsy. ESTIMATED BLOOD LOSS: 30 mL. DRAINS: None. ANESTHESIA: GET OG tube. REASON FOR PROCEDURE: This is a 39-year-old gentleman who presented to the office for weight loss options. After describing his options he decided to proceed with laparoscopic gastric band placement, possible liver biopsy and upper endoscopy. The patient was seen by the respective subspecialties and cleared for surgery. The risks and benefits of the procedure were explained. These included bleeding, infection, hernia, [place], DVT, PE, injury to surrounding structures including the liver, colon, bowel, spleen, esophagus, vessel injury, nerve injury, weight regain, obstruction, gastric band slip, gastric band erosion, port site slip, port site infection, vitamin deficiency, hair loss, and as some of the possible complications. The patient understood and signed informed consent. DESCRIPTION OF PROCEDURE: The patient was placed supine on the operating room table. The patient underwent general endotracheal intubation. The arms were brought out at 90 degrees and secured. A footboard was placed and the legs were secured laterally with padding. The abdomen was prepped and draped in the usual sterile fashion. A time-out was performed. An incision was made in the left upper quadrant and a Veress needle inserted. Pneumoperitoneum was established. The Veress needle was then removed. A 5-mm trocar was then placed under direct visualization with the laparoscope. Inspection of the abdominal cavity was then performed with the laparoscopic camera. Subsequently, in the right upper quadrant to the right of midline, a 15-mm trocar was inserted under direct visualization. A 5-mm trocar was placed further laterally in the right upper quadrant and a 5-mm trocar placed below the left costal margin. A stab wound was made in the subxiphoid area and a Nataly clamp inserted and removed to dilate the tract. A Ghislaine liver retractor was inserted. The post was secured at the bedside by the nursing staff. The patient was placed in steep reverse Trendelenburg position, and the Ghislaine liver retractor was used to secure the liver towards the anterior abdominal wall. There were noted to be adhesions around the stomach that needed to be taken down carefully. This was done using hook electrocautery. No injuries to surrounding structures were noted during this portion. Also, hemostasis was noted. The fundus of the stomach was noted and grasped towards the patient's right side and caudad. The omentum was also retracted downward as well. Electrocautery was used to score the peritoneum over the left esophagogastric junction freeing this area until the left evens of the diaphragm was noted. The stomach was then pulled laterally to the patients left side, and the caudate lobe of the liver was identified. The pars flaccida was identified, and an opening created within it. The right evens of the diaphragm was noted. The caudate lobe of the liver was retracted, and the inferior vena cava was noted to be away from the field. The peritoneum anterior to the right evens was scored with electrocautery, and a laparoscopic dissector was used to gently make a tunnel from the right to the left evens until it was free in the left upper quadrant of the abdomen. The gastric band was then chosen and prepped by the surgical instruments inspector. This was then placed within the abdominal cavity. The band tubing was placed into the laparoscopic dissector, which was pulled and withdrawn to the patients right side. The band tubing was placed within the band buckle and secured, securing the band around the stomach. The band was noted to be in good position and not too tight around the stomach. The stomach was then imbricated over the band. An Endo Stitch was used to grab the body of the stomach and secured to itself, imbricating the stomach over the band. Hemostasis was noted. The band tubing was then brought out of the 15-mm trocar. In addition, the stomach was oversewed to itself overlying the band laparoscopically. This was done with an Endo Stitch device. A wedge liver biopsy was then performed. The left lobe of the liver was identified. A portion of the edge of the left lobe of the liver was grasped. Using electrocautery, a wedge of the left liver was excised. The specimen was removed and sent off the field. Hemostasis of the wedge liver biopsy site was attained and noted using electrocautery. The Ghislaine liver retractor was removed under direct visualization. Pneumoperitoneum was desufflated and all trocars removed. The skin at the 15-mm trocar site was extended, and dissection continued until the anterior fascia was identified. Four 2-0 Prolene sutures were placed in the fascia. The end of the band tubing was cut and removed and sent off the field. The port was secured to the band tubing. The port was secured to the fascia using the four 2-0 Prolene sutures. Hemostasis was again noted. Marcaine was injected at all incision sites. A 3-0 Vicryl suture was used to close the deep subcutaneous tissue at the 15-mm incision site. 4-0 Biosyn sutures were used to close all incision sites. Sterile dressings were applied. The patient tolerated the procedure well and was transferred to the recovery room in stable condition. Bailee [id number]
--- NOTE | 2019-11-28 16:36 | PATH ---
Surgical Pathology Report Patient Name: LY BARNHART Med. Rec. #: [id number] /Age/Gender: 1980 (Age: 39) / M Account: [id number] Location: [facility] AMBULATORY Taken: 11/26/2019 Received: 11/26/2019 Reported: 11/28/2019 Physicians: Calvin Altamirano M.D. Specimen(s) Received LIVER BIOPSY Clinical History Morbid obesity Final Diagnosis LIVER, BIOPSY: LIVER WITH FOCAL STEATOSIS (<5%). TRICHROME STAIN SHOWS NO APPRECIABLE INCREASE IN FIBROSIS. IRON STAIN SHOWS RARE FOCAL IRON DEPOSITS. Comment: The Non-Alcoholic Steatosis (SITA) score is 0/8 (steatosis: 0/3; lobular inflammation: 0/3; hepatocyte balloonin/2). The fibrosis stage is 0/4. Scoring interpretation: Total SITA score represents the sum of scores for steatosis, lobular inflammation and ballooning, and ranges from 0-8. In the reference study, SITA scores of 0-2 occurred in cases largely considered not diagnostic of Non-Alcoholic Steatohepatitis (GORDON), scores of 3-4 were evenly divided among those considered not diagnostic, borderline or positive for GORDON. Scores of 5-8 occurred in cases that were largely considered diagnostic of GORDON. Reference: Silvestre Hector. & Anabel Gant., et al; Design and validation of a histological scoring system for non-alcoholic fatty liver disease: Hepatology [id number]. Electronically Signed Sky Mendiola M.D. Gross Description Received in formalin labeled "liver biopsy," is a 1.5 x 0.9 x 0.4 cm kay portion of soft tissue, consistent with a liver biopsy. The specimen is bisected and entirely submitted in one cassette. 11/27/2019 saudi11/27/2019
== END 2019-11-26 13:15 | disposition home or self-care (01) ==
LOC: FASU 05:49
PROVIDERS: ATTEND Surgery
PROC: 0DQ64ZZ Repair Stomach, Percutaneous Endoscopic Approach (ICD-10-PCS; 2019-11-26)
PROC: 0DV64CZ Restriction of Stomach with Extraluminal Device, Percutaneous Endoscopic Approach (ICD-10-PCS; principal; 2019-11-26 08:26)
PROC: 0FB24ZX Excision of Left Lobe Liver, Percutaneous Endoscopic Approach, Diagnostic (ICD-10-PCS; 2019-11-26 08:26)
DX: E66.01 Morbid (severe) obesity due to excess calories (principal); Z68.33 Body mass index [BMI] 33.0-33.9, adult; G47.30 Sleep apnea, unspecified; K66.0 Peritoneal adhesions (postprocedural) (postinfection); R16.0 Hepatomegaly, not elsewhere classified
CPT/HCPCS: 36415; 74240-TC-FY; 80048; 85027; 88305-TC; 88313-TC; 94760; J0131

== ENCOUNTER 2020-05-05 06:25 | Day surgery (SDC) | payer BC ==
[2020-05-05 06:40] VITALS: BMI 29.5
[2020-05-05] MEDS ORDERED: SODIUM CHLORIDE 1,000 ML IV SCH ×2 (07:00→15:30)
[2020-05-05 07:24] LABS: BASO % 4.5 % (0-2.0); EOS % 0.8 % (0-4.5); HEMOGLOBIN 15.1 GM/dl (11.7-16.9); LYMPH % 44.8 % (8-40); MCH 25.3 pg (25.7-33.7); MEAN CELL VOLUME 78.8 fl (80-96); MONO % 8.2 % (3.8-10.2); NEUT % 41.7 % (42.8-82.8); PLATELET COUNT 207 K/MM3 (134-434); RBC 5.97 M/mm3 (4.00-5.60); RDW 13.2 % (11.9-15.9)
[2020-05-05 07:32] LABS: ALBUMIN 3.8 g/dl (3.4-5.0); BILIRUBIN,TOTAL 0.6 mg/dl (0.2-1); CALCIUM 9.1 mg/dl (8.5-10); CREATININE 0.7 mg/dl (0.55-1.3); POTASSIUM 3.9 mmol/L (3.5-5.1); TOT PROT 6.7 g/dl (6.4-8.2)
[2020-05-05 07:33] LABS: INR 1.01 (0.82-1.09); PROTHROMBIN TIME (PATIENT) 11.3 SEC (10.2-13.0)
[2020-05-05] MEDS ORDERED: LIDOCAINE HCL/PF 2% SDV 5ML VIAL ONE (13:18)
[2020-05-05] MEDS ORDERED: ONDANSETRON 4 MG/2 ML VIAL ONE (13:18)
[2020-05-05] MEDS ORDERED: DEXAMETHASONE SOD PHOSPHATE 4 MG/1 ML VIAL ONE (13:18)
[2020-05-05] MEDS ORDERED: MIDAZOLAM HCL 2 MG/2 ML SINGLE DOSE VIAL ONE ×2 (13:19)
[2020-05-05] MEDS ORDERED: PROPOFOL 20 ML ONE ×2 (13:19)
[2020-05-05] MEDS ORDERED: ROCURONIUM BROMIDE 50 MG/5 ML SYRINGE ONE (13:19)
[2020-05-05] MEDS ORDERED: BUPIVACAINE HCL/PF 0.25% (2.5MG/ML) 10 ML VIAL ONE (13:36)
[2020-05-05] MEDS ORDERED: oxyCODONE HCL 5 MG TABLET PO PRN ×2 (13:44)
[2020-05-05] MEDS ORDERED: ONDANSETRON 4 MG/2 ML VIAL IVPUSH PRN ×2 (13:44→15:22)
[2020-05-05] MEDS ORDERED: LACTATED RINGERS SOLUTION 1,000 ML IV SCH (13:45)
[2020-05-05] MEDS ORDERED: ceFAZolin SODIUM 1 GM VIAL ONE (14:03)
[2020-05-05] MEDS ORDERED: BUPIVACAINE HCL/PF 0.25% (2.5MG/ML) 10 ML VIAL IJ ONE ×3 (14:27→15:00)
[2020-05-05] MEDS ORDERED: NEOSTIGMINE METHYLSULFATE 0.5 MG/1 ML - 10 ML MDV ONE (14:50)
[2020-05-05] MEDS ORDERED: morphine SULFATE 4 MG/ML VIAL IVPUSH PRN (15:22)
[2020-05-05] MEDS ORDERED: PROMETHAZINE HCL 25 MG/1 ML VIAL IM PRN (15:26)
[2020-05-05 15:40] VITALS: TEMP 97.8
[2020-05-05] MEDS ORDERED: ENOXAPARIN NA (PORCINE) 40 MG/0.4 ML DISP.SYRIN SQ ONE ×3 (16:00→16:15)
[2020-05-05 16:37] LABS: HEMATOCRIT 44.7 % (35.4-49); MCH 26.1 pg (25.7-33.7); MCHC 33.5 g/dl (32.0-35.9); MEAN CELL VOLUME 77.9 fl (80-96); MEAN PLT VOLUME 7.7 fl (7.5-11.1); PLATELET COUNT 187 K/MM3 (134-434); RBC 5.74 M/mm3 (4.00-5.60); RDW 12.8 % (11.9-15.9); WHITE BLOOD COUNT 7.5 K/mm3 (4.0-10.8)
[2020-05-05 16:43] LABS: CALCIUM 8.5 mg/dl (8.5-10); CREATININE 0.7 mg/dl (0.55-1.3); POTASSIUM 4.4 mmol/L (3.5-5.1)
[2020-05-05] MEDS ORDERED: oxyCODONE HCL 5 MG TABLET ONE (17:10)
[2020-05-05 18:25] VITALS: BP 126/81; PULSE 82
[2020-05-05] MEDS ORDERED: FAMOTIDINE 20 MG/50 ML IVPB 20 MG/50 ML MG IVPB SCH (22:00)
== END 2020-05-05 18:27 | disposition home or self-care (01) ==
LOC: FER 06:25 → FASU 13:14
PROVIDERS: ATTEND Surgery
PROC: 0DP64YZ Removal of Other Device from Stomach, Percutaneous Endoscopic Approach (ICD-10-PCS; principal; 2020-05-05 14:13)
DX: T85.518A Breakdown (mechanical) of other gastrointestinal prosthetic devices, implants and grafts, initial encounter (principal); R11.2 Nausea with vomiting, unspecified; R13.19 Other dysphagia
CPT/HCPCS: 36415; 71045-TC-FY; 80048; 80053; 85025; 85027; 85610; 86850; 86900; 86901; 88300-TC; 93005; 94760; 99285-25; C9803; U0003

== ENCOUNTER 2023-02-14 06:54 | Emergency (ER) | payer OTHER ==
[2023-02-14 07:08] VITALS: BP 130/95; PULSE 86; RESP 20; TEMP 97.9; BMI 34.8
[2023-02-14] MEDS ORDERED: KETOROLAC TROMETHAMINE 30 MG/1 ML VIAL IM ONE (08:03)
[2023-02-14] MEDS ORDERED: KETOROLAC TROMETHAMINE 30 MG/1 ML VIAL ONE (08:14)
== END 2023-02-14 08:58 | disposition home or self-care (01) ==
LOC: JER 06:54
PROC: 3E0233Z Introduction of Anti-inflammatory into Muscle, Percutaneous Approach (ICD-10-PCS; principal; 2023-02-14)
DX: M25.561 Pain in right knee (principal); W31.89XA Contact with other specified machinery, initial encounter; Y93.02 Activity, running
CPT/HCPCS: 73562-TC-RT-FY; 99284-25